=== PATIENT | male | born 1995 | race Caucasian/White ===

== ENCOUNTER 2023-06-20 16:50 | Inpatient (IN) ==
[2023-06-20] MEDS ORDERED: SODIUM CHLORIDE 0.9% 1,000 ML IV STA (16:58)
--- NOTE | 2023-06-20 16:58 | ED Triage Note ---
Date of Service June 20, 2023 History of Present Illness This patient was briefly evaluated while in triage. An abbreviated physical exam was performed. This patient is a 28-year-old Male who presents to the ED for evaluation of abdominal pain for past week. Has had some diarrhea with it, no blood in stool. No vomiting. Had outpatient CT this afternoon that shows acute appendicitis. Last ate 4pm today. No previous surgeries. No allergies. Patient instructed not to eat or drink anything else at this time. Physical Exam CONSTITUTIONAL: No acute distress. Well appearing. RESPIRATORY: Clear to auscultation bilaterally. Equal expansion bilaterally. CARDIOVASCULAR: Regular rate and rhythm with no murmurs, rubs or gallops. GASTROINTESTINAL: TTP in RLQ, no acute abdomen. Active bowel sounds. NEUROLOGIC: Alert and oriented X 4 with normal affect. Initial orders for labs and / or imaging were placed and patient was placed in the waiting area until a bed is available. Please see further documentation for the full ED course.
[2023-06-20] MEDS ORDERED: PIPERACILLIN/TAZOBACTAM 4.5 GM/120 ML BAG IV ONE (18:36)
--- NOTE | 2023-06-20 18:43 | Emergency Department Note ---
Impression & Plan Appendicitis ED Provider Note Provider: Anshu Moore MD DATE OF SERVICE: 06/20/2023 CHIEF COMPLAINT: Abnormal CT, abdominal pain HISTORY OF PRESENT ILLNESS: Patient is a 28-year-old gentleman healthy presenting here today referred due to an abnormal outpatient abdominal CT. States just over a week ago he started to have a little bit of mid abdominal discomfort. The last couple of days things have worsened and more pain now down in the right lower quadrant. Seen at [facility] and had outpatient blood work as well as a CT scan scheduled today. Called this afternoon just after the CT scan informed of findings sooner for appendicitis referred back to the ER. Patient states that he has not had any significant nausea and did eat around 4:[address] imaging before coming back today. Has not used anything for pain and does not feel that he needs anything at this time. Denies any pain or back pain. No sciatica or leg pain reported. Denies trauma. Maybe a trace amount of diarrhea but denies significant. No history of abdominal surgeries reported. No fevers reported. PAST MEDICAL HISTORY: As noted above MEDICATIONS: No regular prescriptions reported SOCIAL HISTORY: Non-smoker PHYSICAL EXAM: GENERAL: alert and oriented in no acute distress on stretcher Head: normocephalic and atraumatic EYES: No injection, discharge or icterus. NECK: Trachea midline. ENT: Mucous membranes pink and moist. LUNGS: Airway patent. No retractions or tachypnea HEART: Regular rate and rhythm. No chest wall tenderness ABDOMEN: Soft without peritonitis or upper abdominal pain but pain localized in the right lower quadrant. SKIN: Acyanotic, warm, dry NEUROLOGICAL: No focal deficits. No aphasia. No facial droop or slurred speech. Ambulatory. Patient's laboratory studies and imaging reviewed. Differential includes Appendicitis, testicular torsion, infections, diverti culitis, UTI, obstruction, mesenteric ischemia, aortic pathology, inflammatory bowel disease, renal colic, PUD, pancreatitis, biliary pathology, hernia, volvulus, constipation, as well as other pathologies. IMPRESSION/MEDICAL DECISION MAKING: Patient denies symptoms or significant sciatic symptoms. Imaging concerning for likely appendicitis. Not having significant symptoms concerning otherwise for IBD/Crohn's. Blood work ordered but report of normal white blood cell count on outpatient blood work. Blood work is reassuring without leukocytosis or anemia. No skin chemistry abnormalities evidence of hepatitis or pancreatitis. Urinalysis negative. Negative COVID testing. Did not seem consistent with pancreatitis hepatitis, or perforation. Given some IV fluid and Zosyn for antibiotic coverage given the CT findings. Not a significant discomfort at this point will avoid narcotics if able. Not having nausea. Imaging report reviewed without evidence of perforation or abscess notable. Reached out to the general surgery team for evaluation. They will admit the patient for further care and likely further surgical care. DIAGNOSIS: Appendicitis DISPOSITION: Evaluated by the surgical team and admitted for further care Past Med/Surg History Social History Smoking Status: Never smoker Hx Alcohol Use: No Hx Substance Use: No Preferred Language: Cambodian Communication Ability: Effective Wearing Apparel Folder Required: No Beliefs That Will Affect Care: None Current Living Situation Comment: 2 roommates Other Information That Helps Us Care for You: No Feels Safe at Home: Yes Safety Concerns: Feels Safe At This Time Assistive Devices: Glasses Allergies Allergies Allergy/AdvReac Type Severity Reaction Status Date / Time No Known Allergies Allergy Unverified 06/20/23 19:39 Home Meds Home Medications Medication Instructions Recorded Confirmed ibuprofen 400 mg tablet 400 mg PO Q6H PRN Pain 06/20/23 06/20/23 Results & Data (ED) Vital Signs Vital Signs - 24 hr 06/20/23 16:54 06/20/23 18:34 06/20/23 19:28 Temperature 36.8 C Temperature Source Temporal Artery Scan Pulse Rate 90 Pulse Rate [Right Finger] 72 71 Respiratory Rate 18 20 18 Respiratory Effort / Characteristics Non-Labored Non-Labored Respiratory Depth Normal Normal Blood Pressure 126/81 Blood Pressure [Right Arm] 148/82 H 135/73 Blood Pressure Mean 96 Blood Pressure Mean [Right Arm] 104 93 Pulse Oximetry 99 97 99 Oxygen Delivery Method Room Air Room Air Sepsis Recent Fever Within 48 Hours No Sepsis New/Unexplained Change in Mental Status No Sepsis Action Taken by Nursing No Action Required Laboratory Data 06/20/23 18:38 06/20/23 18:38 Lab Results 06/20/23 06/20/23 06/20/23 Range/Units 18:38 18:38 19:31 WBC 10.27 (4.8-10.8) K/ul RBC 4.70 (4.70-6.10) M/uL Hgb 14.0 (14.0-18.0) g/dl Hct 41.1 L (42.0-52.0) % MCV 87.4 (80.0-100.0) fL MCH 29.8 (25.0-34.0) pg MCHC 34.1 (32.0-36.0) g/dL RDW Std Deviation 39.1 (36.4-46.3) fL RDW Coeff of Mary 12.2 (11.5-14.5) % Plt Count 178 (130-400) K/uL MPV 10.3 (9.4-12.4) fL Immature Gran % (Auto) 0.3 % Neut % (Auto) 70.8 % Lymph % (Auto) 16.6 % [place] % (Auto) 11.1 % Eos % (Auto) 0.9 % Baso % (Auto) 0.3 % Neut # (Auto) 7.28 H (1.40-6.50) K/uL Lymph # (Auto) 1.70 (1.2-3.4) K/uL [place] # (Auto) 1.14 H (0.11-0.59) K/uL Eos # (Auto) 0.09 (0-0.50) K/uL Baso # (Auto) 0.03 (0-0.2) K/uL Immature Gran # (Auto) 0.03 (0.01-0.20) K/uL Sodium 139 (136-145) mmol/L Potassium 4.0 (3.5-5.1) mmol/L Chloride 102 (98-107) mmol/L Carbon Dioxide 31 (21-32) mmol/L Anion Gap 6 (3-11) BUN 9 (6-23) mg/dl Creatinine 0.85 (0.6-1.4) mg/dl Est Cr Clr Drug Dosing 158.8 ml/min Est GFR ( Amer) 137.4 ml/min Est GFR (Non-Af Amer) 118.6 ml/min BUN/Creatinine Ratio 10.6 (10-20) Glucose 84 (70-99(Fasting)) mg/dl Calcium 9.2 (8.6-10.3) mg/dl Total Bilirubin 1.0 (0.2-1.0) mg/dl AST 13 (13-39) U/L ALT 9 (7-52) U/L Alkaline Phosphatase 72 (34-104) U/L Total Protein 7.4 (6.0-8.3) gm/dl Albumin 4.5 (3.4-5.0) gm/dl Globulin 2.9 (2.5-4.0) gm/dl Albumin/Globulin Ratio 1.6 (0.9-2) Lipase 33 (11-82) U/L SARS-CoV-2, RNA, NAAT NEGATIVE (NEGATIVE) Administered Medications Lactated Ringer's (Lr) 1,000 mls @ 125 mls/hr IV .Q8H SAVANNAH Stop: 07/20/23 19:44 Last Admin: 06/20/23 21:50 Dose: 125 mls/hr Documented By: LY Discontinued Medications Sodium Chloride (Nss 1000ml) 1,000 mls @ 999 mls/hr IV .Q1H1M STA Stop: 06/20/23 17:58 Last Infusion: 06/20/23 19:49 Dose: 0 mls/hr Documented By: Admin: 06/20/23 18:39 Dose: 999 mls/hr Documented By: JANET Piperacillin Sod/Tazobactam Sod (Zosyn) 4.5 gm in 120 mls @ 240 mls/hr IV NOW ONE Stop: 06/20/23 19:05 Last Infusion: 06/20/23 20:16 Dose: 0 mls/hr Documented By: Admin: 06/20/23 19:24 Dose: 240 mls/hr Documented By: JOHN Discharge Plan Visit Data Chief Complaint: Abnormal Labs/Diagnostic Testing Stated Complaint: ABNORMAL LABS, REF BY DOC POSSIBLE APPENDIX ED Provider: Anshu Moore Discharge Problem: Appendicitis Patient Disposition: Admitted As Inpatient Discharge Instructions Interventions: ED Discharge Assessment Last Done: 06/20/23 21:39
[2023-06-20 19:10] LABS: Basophils # (auto) 0.03 K/uL (0-0.2); Basophils % (auto) 0.3 %; Eosinophils # (auto) 0.09 K/uL (0-0.50); Eosinophils % (auto) 0.9 %; Hematocrit (blood only) 41.1 % (42.0-52.0); Immature Granulocytes # (auto) 0.03 K/uL (0.01-0.20); Immature Granulocytes % (auto) 0.3 %; Lymphocytes % (auto) 16.6 %; Mean Corpuscular Hemoglobin 29.8 pg (25.0-34.0); Mean Corpuscular Hgb Conc 34.1 g/dL (32.0-36.0); Mean Corpuscular Volume 87.4 fL (80.0-100.0); Mean Platelet Volume 10.3 fL (9.4-12.4); Monocytes # (auto) 1.14 K/uL (0.11-0.59); Monocytes % (auto) 11.1 %; Neutrophils # (auto) 7.28 K/uL (1.40-6.50); Neutrophils % (auto) 70.8 %; Platelet Count 178 K/uL (130-400); RDW Coefficient of Variation 12.2 % (11.5-14.5); RDW Standard Deviation 39.1 fL (36.4-46.3); White Blood Count 10.27 K/ul (4.8-10.8)
[2023-06-20 19:22] LABS: Albumin Globulin Ratio 1.6 (0.9-2); Albumin Level 4.5 gm/dl (3.4-5.0); BUN Creatinine Ratio 10.6 (10-20); Calcium 9.2 mg/dl (8.6-10.3); Creatinine Clr Calc Pharmacy 158.8 ml/min; Est GFR (African American) 137.4 ml/min; Est GFR (Non-African American) 118.6 ml/min; Globulin 2.9 gm/dl (2.5-4.0); Total Protein 7.4 gm/dl (6.0-8.3)
[2023-06-20] MEDS ORDERED: MoRPHine SULFATE 4 MG/ML 1 ML CARP\\VIAL IV PRN (19:43)
[2023-06-20] MEDS ORDERED: ACETAMINOPHEN 1,000 MG/100 ML VIAL IV PRN (19:43)
[2023-06-20] MEDS ORDERED: ONDANSETRON INJ 2 MG/ML 2 ML VIAL IV PRN (19:43)
--- NOTE | 2023-06-20 19:43 | History & Physical Report ---
This case was discussed with the surgical PA. I agree with the plan. Date of Service June 20, 2023 Assessment & Plan (1) Appendicitis: Plan: Due to the patient's clinical presentation and findings on imaging he will be admitted to the hospital proceeding as follows: Analgesics we provided Antiemetics will be provided N.p.o. status will be implemented The patient be hydrated with intravenous fluids We will follow serial lab The treating emergency room physician has ordered antibiotics in form of Zosyn and we will continue this medicine We have tentatively plan to perform an appendectomy with Dr. Cleveland on 06/21/2023. At the present time the patient is noted to be normotensive without tachycardia or fever. He also does not exhibit leukocytosis and does not have peritoneal signs suggestive of an acute abdomen. As the patient has recently had a meal as described in history of present illness it would be prudent to delay his surgery due to this fact. I have discussed with anesthesia and they would prefer to wait a minimum of 8 hours since the patient has had solid food. 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 due to an abnormal CT scan which will be described below. I evaluated the patient at approximately 7:15 PM on 06/20/2023 patient reports that he had approximate 1 week of right lower quadrant pain. He said that the pain would occur in an on-and-off fashion approximately 5 minutes. The patient notes that he was hiking and was eating some blackberries and he initially considered that he may have had some food poisoning. He notes that throughout the ensuing week his pain got more frequent and is now relatively constant. He does note that the pain is somewhat better when he lies down. He does not note any provocative factors. He has had some minor nausea without emesis. He denies any loss of appetite. He denies any fevers, shakes, or chills. He denies any prior abdominal surgeries. Because of the persistence of his pain he reported to [facility] who had the patient undergo a CT scan. The patient did undergo an outpatient CT scan which was ordered by [facility]. On this study the patient was noted to have some extensive thickening of the cecum and terminal ileum and an enlarged appendix dilated up to approximate 18 mm with a noted appendicolith. The interpreting radiologist felt that this likely represented an acute appendicitis with Crohn's disease considered a less likely diagnosis. There is no evidence of perforation or absc ess. Since arrival to the emergency the patient did have labs where he was noted to have a CBC with a white blood cell count, hemoglobin, and platelet count that were all normal. His hematocrit was slightly low at 41.1. Chemistry profile showed sodium, potassium, BUN, and creatinine were all normal. There is no elevation of patient's LFTs or lipase. Of note, the patient's most recent oral intake was at approximately 4:00 PM on 06/20/2023 where the patient ate a meal at [facility]. At the time of my interview he is resting comfortably in bed and he was in no distress. Concerning past medical history he denies any prior medical problems Concerning past surgical history he has had his wisdom teeth extracted Concerning allergies he denies any allergies to medicines Concerning social history he does not smoke or vape Concerning family history he denies any family history of premature coronary artery disease or myocardial infarction Allergies Allergy/AdvReac Type Severity Reaction Status Date / Time No Known Allergies Allergy Unverified 06/20/23 19:39 Home Medications Medication Instructions Recorded Confirmed Type ibuprofen 400 mg tablet 400 mg PO Q6H PRN Pain 06/20/23 06/20/23 History Past Med/Surg History Social History Smoking Status: Never smoker Preferred Language: Senegalese Feels Safe at Home: Yes Review of Systems Constitutional: no fever and no chills Eyes: + corrective lenses Ear, Nose, Mouth, Throat: no hearing loss Respiratory: no cough and no dyspnea Cardiovascular: no chest pain Gastrointestinal: as per Subjective / HPI Genitourinary: no dysuria Musculoskeletal: no back pain Integumentary: no rash Neurologic: no localized weakness Physical Exam Constitutional: WD/WN, vitals as above Eyes: no conjunctival abnormality ENMT: Ears: no hearing impairment and no external ear abnormality Mouth: no oropharynx abnormality Neck: trachea midline Respiratory: normal respiratory effort, lungs clear to auscultation Cardiovascular: Rate/Rhythm: regular rate and regular rhythm Vessels: dorsalis pedis pulses present and radial pulses present Gastrointestinal (Abdomen): Abdomen is soft, nondistended, and nonrigid. Bowel sounds are present. The patient had pain noted with palpation of the right lower quadrant McBurney's point. There is no rebound tenderness or guarding Musculoskeletal: No calf tender Skin: no rashes Neurologic: moves all extremities Psychiatric: A+Ox3, euthymic affect Results & Data Results & Data Vital Signs (Past 12 Hours) Vital Signs Temp Pulse Pulse Resp BP BP Pulse Ox 06/20/23 19:28 71 18 135/73 99 06/20/23 18:34 72 20 148/82 H 97 06/20/23 16:54 36.8 C 90 18 126/81 99 O2 Del Method 06/20/23 19:28 06/20/23 18:34 Room Air 06/20/23 16:54 Room Air PG Care Time/CCT Total # of Minutes Spent Total Time Spent with Patient: Total time spent is greater than 50% in coordination of care (as documented) at patient's floor/unit and/or counseling patient: Coding Level of Care Code 75602 INT INP/OBS CARE 3/75MIN Diagnoses Appendicitis K37
[2023-06-20] MEDS: LACTATED RINGER'S 1,000 ML IV SCH (21:50)
[2023-06-20 22:15] LABS: Appearance Urine Clear (Clear); Bilirubin Urine Negative (Negative); Blood Urine Negative (Negative); Color Urine Yellow; Glucose Urine UA Negative (Negative); Ketones Urine Negative (Negative); Leukocyte Esterase Urine Negative (Negative); Nitrite Urine Negative (Negative); Protein Urine Negative (Negative); Specific Gravity Urine 1.035 (1.000-1.030); Urobilinogen Urine Negative (Negative); pH Urine 8.5 (4.5-7.5)
[2023-06-20] MEDS: PIPERACILLIN/TAZOBACTAM 4.5 GM in DEXTROSE 5% 100 ML IV SCH (23:52)
[2023-06-21] MEDS: LACTATED RINGER'S 1,000 ML IV SCH ×3 (05:34→20:17)
[2023-06-21 06:35] LABS: Basophils # (auto) 0.03 K/uL (0-0.2); Basophils % (auto) 0.4 %; Eosinophils # (auto) 0.13 K/uL (0-0.50); Eosinophils % (auto) 1.8 %; Hematocrit (blood only) 38.3 % (42.0-52.0); Hemoglobin 13.2 g/dl (14.0-18.0); Immature Granulocytes # (auto) 0.03 K/uL (0.01-0.20); Immature Granulocytes % (auto) 0.4 %; Lymphocytes # (auto) 1.68 K/uL (1.2-3.4); Lymphocytes % (auto) 23.5 %; Mean Corpuscular Hemoglobin 30.2 pg (25.0-34.0); Mean Corpuscular Hgb Conc 34.5 g/dL (32.0-36.0); Mean Corpuscular Volume 87.6 fL (80.0-100.0); Mean Platelet Volume 9.9 fL (9.4-12.4); Monocytes # (auto) 0.83 K/uL (0.11-0.59); Monocytes % (auto) 11.6 %; Neutrophils # (auto) 4.45 K/uL (1.40-6.50); Neutrophils % (auto) 62.3 %; Platelet Count 150 K/uL (130-400); RDW Standard Deviation 39.1 fL (36.4-46.3); Red Blood Count 4.37 M/uL (4.70-6.10); White Blood Count 7.15 K/ul (4.8-10.8)
[2023-06-21 06:41] LABS: BUN Creatinine Ratio 8.4 (10-20); Creatinine Clr Calc Pharmacy 162.7 ml/min; Est GFR (African American) 138.8 ml/min; Est GFR (Non-African American) 119.7 ml/min; Potassium 4.4 mmol/L (3.5-5.1)
[2023-06-21] MEDS: PIPERACILLIN/TAZOBACTAM 4.5 GM in DEXTROSE 5% 100 ML IV SCH ×3 (08:32→23:50)
--- NOTE | 2023-06-21 13:49 | Surgery Progress Note ---
Date of Service June 21, 2023 Assessment & Plan (1) Appendicitis: Plan: The patient has a significant amount of cecal thickening. He does not have any history of GI upset or concerns. He has no trouble with eating foods and has no history of IBS like symptoms. I feel as though Crohn's disease is very unlikely in this case. He has a very large appendix with an appendicolith and this is most likely the cause of his current symptoms. While this has not presented as a classic acute appendicitis as he has been having symptoms for over a week the patient I believe would benefit from having his appendix removed considering these current findings. We will continue with IV antibiotics and fluid hydration at this time to help relieve some of the cecal inflammation. Plan will be for laparoscopic appendectomy tomorrow a.m. The details of this procedure were discussed with the patient including the risks and benefits. He expressed understanding of this explanation and all of his questions were answered. Consent was obtained. Continue IV fluids, IV antibiotics. Ambulate, SCDs to bilateral lower extremities. The patient may have a regular diet and be made n.p.o. after midnight tonight in preparation for surgery tomorrow a.m. Admission and Anticipated Discharge Date Admission Date: June 20, 2023 Subjective The patient was seen and examined at bedside this AM. He says he feels unchanged compared to admission. He denies significant abdominal pain but continues with right lower quadrant discomfort. He appears comfortable, denies nausea or vomiting, continues with an appetite and normal bowel movements. Physical Exam Constitutional: healthy appearing and comfortable; no acute distress, not ill appearing and not diaphoretic Respiratory: normal respiratory effort; no respiratory distress, no labored b reathing and does not use accessory muscles Gastrointestinal (Abdomen): Mild right lower quadrant tenderness to palpation. Minimal distention. Abdomen is soft without peritonitis. Neurologic: moves all extremities; no focal motor deficits, not confused and not obtunded Results & Data Vital Signs (Past 12 Hours) Vital Signs Temp Pulse Resp BP Pulse Ox O2 Del Method 06/21/23 07:51 36.6 C 50 L 18 115/69 100 Room Air Laboratory Results WBC: 7.[address] obtained at admission last night reveals a very enlarged appendix with an appendicolith, acute appendicitis. Subsequent inflammation of cecum and terminal ileum. PG Care Time/CCT Total # of Minutes Spent Total Time Spent with Patient: Total time spent is greater than 50% in coordination of care (as documented) at patient's floor/unit and/or counseling patient: Coding Level of Care Code 61843 SUB INP/OBS CARE 11/24MIN Diagnoses Appendicitis K37
[2023-06-22] MEDS: LACTATED RINGER'S 1,000 ML IV SCH ×3 (03:39→18:42)
[2023-06-22] MEDS: PIPERACILLIN/TAZOBACTAM 4.5 GM in DEXTROSE 5% 100 ML IV SCH ×2 (07:50→18:33)
[2023-06-22 08:33] LABS: Basophils # (auto) 0.02 K/uL (0-0.2); Basophils % (auto) 0.4 %; Eosinophils # (auto) 0.18 K/uL (0-0.50); Eosinophils % (auto) 3.7 %; Hematocrit (blood only) 39.3 % (42.0-52.0); Hemoglobin 13.4 g/dl (14.0-18.0); Lymphocytes # (auto) 1.47 K/uL (1.2-3.4); Lymphocytes % (auto) 30.1 %; Mean Corpuscular Hemoglobin 29.6 pg (25.0-34.0); Mean Corpuscular Hgb Conc 34.1 g/dL (32.0-36.0); Mean Corpuscular Volume 86.8 fL (80.0-100.0); Mean Platelet Volume 10.3 fL (9.4-12.4); Monocytes # (auto) 0.47 K/uL (0.11-0.59); Monocytes % (auto) 9.6 %; Neutrophils # (auto) 2.75 K/uL (1.40-6.50); Neutrophils % (auto) 56.2 %; Platelet Count 172 K/uL (130-400); RDW Coefficient of Variation 11.9 % (11.5-14.5); RDW Standard Deviation 37.4 fL (36.4-46.3); Red Blood Count 4.53 M/uL (4.70-6.10); White Blood Count 4.89 K/ul (4.8-10.8)
--- NOTE | 2023-06-22 08:37 | Surgery Progress Note ---
Date of Service June 22, 2023 Assessment & Plan (1) Appendicitis: Plan Plan is for OR today for laparoscopic appendectomy. Consent was obtained yesterday. NPO, IVF No chemical DVT ppx Admission and Anticipated Discharge Date Admission Date: June 20, 2023 Subjective Patient seen this am. Physical Exam Constitutional: healthy appearing and comfortable; not ill appearing and not in distress Respiratory: normal respiratory effort; no respiratory distress, no labored breathing and does not use accessory muscles Gastrointestinal (Abdomen): Percussion/Palpation: + abdomen tender (mildly lower quadrants) and abdomen soft No peritonitis, non-distended Neurologic: moves all extremities and awake; no focal motor deficits and not confused Results & Data Vital Signs (Past 12 Hours) Vital Signs Temp Pulse Resp BP Pulse Ox O2 Del Method 06/22/23 08:05 36.8 C 57 L 18 119/68 99 Room Air PG Care Time/CCT Total # of Minutes Spent Total Time Spent with Patient: Total time spent is greater than 50% in coordination of care (as documented) at patient's floor/unit and/or counseling patient: Coding Level of Care Code 22463 SUB INP/OBS CARE 1/25MIN Diagnoses Appendicitis K37
[2023-06-22 08:58] LABS: BUN Creatinine Ratio 11.4 (10-20); Calcium 9.3 mg/dl (8.6-10.3); Creatinine Clr Calc Pharmacy 170.9 ml/min; Est GFR (African American) 141.6 ml/min; Est GFR (Non-African American) 122.2 ml/min
[2023-06-22 09:10] LABS: Potassium 4.3 mmol/L (3.5-5.1)
--- NOTE | 2023-06-22 13:31 | Anesthesiology Consultation ---
Date of Service June 22, 2023 Assessment & Plan (1) Encounter for pre-operative examination: Chart Review Chart Review: Acceptable Risk for Surgery and Patient NOT seen in Pre Admission Testing Consults Requested none History Surgery Operation Date: 06/22/23 12:50 Proposed Procedures p Laparoscopic Appendectomy - Marii Miles DO Height/Weight Height: 6 ft 4 in Weight: 92.1 kg Allergies Allergy/AdvReac Type Severity Reaction Status Date / Time No Known Allergies Allergy Unverified 06/20/23 19:39 Medications Home Medications Medication Instructions Recorded Confirmed Last Taken ibuprofen 400 mg tablet 400 mg PO Q6H PRN Pain 06/20/23 06/20/23 Unknown Active Medications Generic Name Dose Route Start Last Admin Trade Name Freq PRN Reason Stop Dose Admin Lactated Ringer's 1,000 mls @ 125 mls/hr 06/20/23 19:45 06/22/23 11:43 Lr IV 07/20/23 19:44 125 mls/hr .Q8H SAVANNAH Administration Piperacillin Sod/Tazobactam 120 mls @ 30 mls/hr 06/21/23 00:00 06/22/23 11:45 Sod 4.5 gm/ Dextrose IV 07/01/23 00:00 Infused Q8H SAVANNAH Infusion Protocol Past Medical History Medical History (Updated 06/22/23 @ 13:31 by Zia Lewis MD) Appendicitis Encounter for pre-operative examination Social History Smoking Status: Never smoker Hx Alcohol Use: No Hx Substance Use: No Physical Exam Vital Signs Last Vital Signs Temp 36.8 C 06/22/23 08:05 Pulse 57 L 06/22/23 08:05 Resp 18 06/22/23 08:05 BP 119/68 06/22/23 08:05 Pulse Ox 99 06/22/23 08:05 O2 Del Method Room Air 06/22/23 08:05 Testing Laboratory Results 06/22/23 07:39 06/22/23 07:39 Urine Color Yellow 06/20/23 22:05 Urine Appearance Clear (Clear) 06/20/23 22:05 Urine pH 8.5 (4.5-7.5) H 06/20/23 22:05 Ur Specific [place] 1.035 (1.000-1.030) H 06/20/23 22:05 Urine Protein Negative (Negative) 06/20/23 22:05 Urine Glucose (UA) Negative (Negative) 06/20/23 22:05 Urine Ketones Negative (Negative) 06/20/23 22:05 Urine Nitrite Negative (Negative) 06/20/23 22:05 Ur Leukocyte Esterase Negative (Negative) 06/20/23 22:05
[2023-06-22] MEDS ORDERED: MIDAZOLAM HCL 1 MG/ML 2ML VIAL ONE (13:36)
[2023-06-22] MEDS ORDERED: fentaNYL citrate PF 100 MCG/2 ML VIAL ONE ×2 (13:37→16:57)
[2023-06-22] MEDS ORDERED: ONDANSETRON INJ 2 MG/ML 2 ML VIAL IV PRN (14:03)
[2023-06-22] MEDS ORDERED: ePHEDrine sulfate 50 MG/ML AMP IV PRN (14:03)
[2023-06-22] MEDS ORDERED: HYDROmorphone INJ 2 MG/ML SYR/VIAL IV PRN (14:03)
[2023-06-22] MEDS ORDERED: PROMETHAZINE HCL 6.25 MG in SODIUM CHLORIDE 0.9% 50 ML IV PRN (14:03)
[2023-06-22] MEDS ORDERED: ATROPINE SULFATE 0.1 MG/ML 10ML SYR IV PRN (14:03)
[2023-06-22] MEDS ORDERED: BUPIVACAINE/EPINEPHRINE 0.5% MPF 1:200,000 30 ML VIAL ONE (14:55)
[2023-06-22] MEDS ORDERED: DEXAMETHASONE SOD INJ 4 MG/ML VIAL ONE (15:01)
[2023-06-22] MEDS ORDERED: LIDOCAINE 2% 2 ML VIAL/AMP(20MG/ML) INFIL ONE (15:01)
[2023-06-22] MEDS ORDERED: PROPOFOL IV EMULSION 10 MG/ML 20 ML VIAL IV ONE (15:01)
[2023-06-22] MEDS ORDERED: ROCURONIUM BROMIDE 10 MG/ML 5 ML VIAL IV ONE (15:01)
[2023-06-22] MEDS ORDERED: ONDANSETRON INJ 2 MG/ML 2 ML VIAL ONE (15:01)
[2023-06-22] MEDS ORDERED: GLYCOPYRROLATE 0.2 MG/ML VIAL ONE (15:26)
[2023-06-22] MEDS ORDERED: KETAMINE 50 MG/5 ML SYRINGE ONE (15:29)
[2023-06-22] MEDS ORDERED: FLOSEAL HEMOSTATIC MATRIX 10ML TOP ONE (16:31)
[2023-06-22] MEDS ORDERED: SUGAMMADEX SODIUM 200 MG/2 ML VIAL IV ONE (16:33)
--- NOTE | 2023-06-22 17:10 | Operative Report ---
PG Post Operative Report Pre & Post Diagnosis Operation Date: 06/22/23 12:50 Pre-Op Diagnosis: (1) Appendicitis Post-Op Diagnosis: (1) Appendicitis I identified the patient and participated in the time-out.: Yes Procedure Operation Date: 06/22/23 12:50 Actual Procedures p Laparoscopic Appendectomy(Not Applicable) - Marii Miles DO Surgeon Marii Miles DO Wrap Yarn Sorter Joelle Prakash'yariel Estimated Blood Loss 7 Findings Consistent with Post-Op Diagnosis Specimens Appendix Drains None Anesthesia Type General Complications None Indications Acute appendicitis Description of Procedure Patient was brought back to the operating room placed on the operating room table in supine position. The patient was connected to cardiac and oxygen monitoring. SCDs were applied to bilateral lower extremities. General anesthesia was administered and a secure airway was obtained. A Cavanaugh catheter was inserted. The abdomen was prepped and draped in typical sterile fashion and a timeout was conducted. Local anesthetic was injected into the skin and subcutaneous tissue at the infraumbilical area and a small stab incision was made with an 11 blade. A towel clamp was used to elevate the fascia and a Veress needle was used to access the intra-abdominal space. This location was confirmed with a saline drop test. CO2 insufflation was initiated and pneumoperitoneum was achieved to a pressure of 15 mmHg. A 5 mm trocar was inserted under direct visualization using a 5 mm Visiport with the laparoscope. Local anesthetic was injected into the skin and subcutaneous tissue just above the pubic bone and a stab incision was made with an 11 blade. A suprapubic 5 mm trocar was inserted under direct visualization. A 12 mm trocar was inserted at the left lower quadrant in the same fashion using direct visualization. The omentum was noted to be densely adhered to the right paracolic gutter. A loop of small bowel coursed up and admitted to the and was densely adhered to this area as well. It was come to realize that this was the terminal ileum. Extensive lysis of adhesions had to be undertaken in order to remove the omentum from around the area of interest. The cecum was difficult to identify and was very encased and trapped beneath all of this omental fat and peritoneum. The tissues in this area were very hard and difficult to manipulate.. Careful Christal blunt dissection was used with the suction device to tease apart the structures in this location. Redundant thickened and inflamed peritoneum was dissected away and the portion of the terminal ileum connecting to the cecum was eventually identified. The cecum was still not readily seen as it was covered in layers of redundant thickened peritoneum. The dissection was then taken to the most lateral aspect of the abdomen where a plane was identified between the colon and peritoneum. This was dissected to the point where the ascending colon came into view. The cecum was retracted in addition to the appendix which was finally identified very retrocecal. The tip of the appendix was very dilated and firm. This was a very nonmobile and difficult to manipulate. Tedious, Christal and gentle dissection continued in a blunt fashion using the suction slabber device. The body of the appendix was eventually slowly dissected from the retroperitoneum. A LigaSure device was used to aid in this dissection, being careful not to injure the terminal ileum that was closely associated with this area as well. Finally the base of the appendix was identified and the tip of the cecum a 45 mm purple loaded Endo ANGELES was used to transect and ligate this structure. The appendix was placed in an Endo Catch bag and placed in a labeled container sent to pathology for further analysis. The area was thoroughly inspected for hemostasis. Excess second and inflamed peritoneum mixed with fatty tissue that had been identified earlier on in the case was removed and sent in a labeled container along with the appendix to pathology for further analysis. This could have potentially been an obliterated mesoappendix and the appendiceal artery. Secondary to the dense adhesions and fibrinous tissue in general there was oozing from the peritoneal tissue surrounding. These were very gently cauterized taking care not to cause thermal injury to the bowel. Once hemostasis was achieved Floseal was used at the right paracolic gutter lower these fibrinous and oozy tissues. The pelvis was suctioned and irrigated. The omentum was pulled down to cover this area of dissection and appendectomy. Pneumoperitoneum was evacuated all the instruments and trocars were removed. The left lower quadrant incision was closed at the level of the fascia using 0 Vicryl suture. 3-0 Vicryl suture was used to coapt the deep dermis. The 3 incisions were closed at the level of skin with 4-0 Vicryl suture. The abdomen was wiped clean with a saline soaked lap pad and dried. The incisions were each dressed with Dermabond. The Cavanaugh catheter was removed. The patient was awakened from anesthesia and a secure airway was removed. He tolerated the procedure well and was transferred to recovery in stable condition. I attest to the content of the Intraoperative Record and any orders documented therein. Any exceptions are noted below.
[2023-06-22] MEDS: fentaNYL citrate PF 100 MCG/2 ML VIAL IV PRN ×4 (17:35→17:50)
--- NOTE | 2023-06-22 18:10 | Anesthesiology Progress Note ---
Date of Service June 22, 2023 Anesthesia Post Procedure Vital Signs Vital Signs: Temp Pulse Pulse Resp BP Pulse Ox O2 Del Method 06/22/23 17:40 89 16 157/84 H 100 Oxymask 06/22/23 17:50 70 18 148/81 H 100 Oxymask 06/22/23 17:30 91 H 18 149/79 H 100 Oxymask 06/22/23 17:20 88 18 146/81 H 100 Oxymask 06/22/23 17:11 36.3 C L 88 16 164/83 H 97 Oxymask 06/22/23 13:50 36.9 C 20 127/71 99 Room Air 06/22/23 08:05 36.8 C 57 L 18 119/68 99 Room Air 06/21/23 20:15 36.7 C 62 16 124/75 99 Room Air O2 Flow Rate 06/22/23 17:40 2 06/22/23 17:50 2 06/22/23 17:30 3 06/22/23 17:20 5 06/22/23 17:11 5 06/22/23 13:50 06/22/23 08:05 06/21/23 20:15 Pain Intensity Abdomen: Pain Intensity: 3 Transfer of Care Handoff Completed per policy Notes Mental Status: alert / awake / arousable Patient Amnestic to Procedure: Yes Nausea / Vomiting: adequately controlled Pain: adequately controlled Airway Patency, RR, SpO2: stable & adequate BP & HR: stable & adequate Hydration State: stable & adequate Anesthetic Complications: no major complications apparent
[2023-06-22] MEDS ORDERED: MoRPHine SULFATE 4 MG/ML 1 ML CARP\\VIAL IV PRN (18:30)
[2023-06-22] MEDS ORDERED: MoRPHine SULFATE 2 MG/ML CARP IV PRN (18:30)
[2023-06-22] MEDS: ACETAMINOPHEN 1,000 MG/100 ML VIAL IV SCH (19:08)
[2023-06-22] MEDS ORDERED: Nursing to Pharmacy Communication SCH (20:00)
[2023-06-23] MEDS: LACTATED RINGER'S 1,000 ML IV SCH ×3 (01:36→21:24)
[2023-06-23] MEDS: ACETAMINOPHEN 1,000 MG/100 ML VIAL IV SCH ×3 (01:36→17:35)
[2023-06-23] MEDS: PIPERACILLIN/TAZOBACTAM 4.5 GM in DEXTROSE 5% 100 ML IV SCH ×4 (01:37→23:19)
--- NOTE | 2023-06-23 08:42 | Surgery Progress Note ---
Date of Service June 23, 2023 Assessment & Plan (1) Appendicitis: Plan: Patient is POD 1 s/p laparoscopic appendectomy. HD stable, afebrile. F/U am labs. Continue fluids and NPO (may have ice chips). Ambulate Admission and Anticipated Discharge Date Admission Date: June 20, 2023 Subjective Patient feels improved since surgery. Denies N/V. Has some gas pains at the right ribs and shoulder. Occasional mild abdominal soreness well controlled. Says he has passed some gas. Physical Exam Constitutional: healthy appearing; not ill appearing, not in distress and not diaphoretic Respiratory: normal respiratory effort; no respiratory distress, no labored breathing and does not use accessory muscles Gastrointestinal (Abdomen): abdomen is mildly distended, very soft, no ecchymosis. Incisions are dry and intact. Neurologic: moves all extremities and awake; no focal motor deficits and not confused Results & Data Vital Signs (Past 12 Hours) Vital Signs Temp Pulse Resp BP Pulse Ox O2 Del Method 06/23/23 08:17 36.7 C 63 18 132/73 99 Room Air 06/23/23 01:47 36.7 C 54 L 16 139/75 98 Room Air 06/22/23 21:44 37 C 71 16 133/68 98 Room Air Laboratory Results Labs pending PG Care Time/CCT Total # of Minutes Spent Total Time Spent with Patient: Total time spent is greater than 50% in coordination of care (as documented) at patient's floor/unit and/or counseling patient: Coding Level of Care Code 42716 SUB INP/OBS CARE /25MIN Diagnoses Appendicitis K37
[2023-06-23 08:47] LABS: Basophils # (auto) 0.02 K/uL (0.00-0.20); Basophils % (auto) 0.2 %; Eosinophils # (auto) 0.02 K/uL (0.00-0.50); Eosinophils % (auto) 0.2 %; Hematocrit (blood only) 37.9 % (42.0-52.0); Hemoglobin 13.3 g/dl (14.0-18.0); Immature Granulocytes # (auto) 0.04 K/uL (0.01-0.20); Immature Granulocytes % (auto) 0.4 %; Lymphocytes # (auto) 1.22 K/uL (1.20-3.40); Lymphocytes % (auto) 11.9 %; Mean Corpuscular Hemoglobin 29.7 pg (25.0-34.0); Mean Corpuscular Hgb Conc 35.1 g/dL (32.0-36.0); Mean Corpuscular Volume 84.6 fL (80.0-100.0); Mean Platelet Volume 10.3 fL (9.4-12.4); Monocytes # (auto) 1.27 K/uL (0.11-0.59); Monocytes % (auto) 12.4 %; Neutrophils # (auto) 7.64 K/uL (1.40-6.50); Neutrophils % (auto) 74.9 %; Platelet Count 202 K/uL (130-400); RDW Coefficient of Variation 11.6 % (11.5-14.5); RDW Standard Deviation 35.6 fL (36.4-46.3); Red Blood Count 4.48 M/uL (4.70-6.10); White Blood Count 10.21 K/ul (4.8-10.8)
[2023-06-23 09:08] LABS: BUN Creatinine Ratio 12.3 (10-20); Calcium 8.9 mg/dl (8.6-10.3); Creatinine Clr Calc Pharmacy 166.7 ml/min; Est GFR (African American) 140.2 ml/min; Est GFR (Non-African American) 120.9 ml/min; Potassium 4.2 mmol/L (3.5-5.1)
--- NOTE | 2023-06-23 12:00 | Surgery Progress Note ---
Date of Service June 23, 2023 Assessment & Plan (1) Appendicitis: Plan POD 1 s/p laparoscopic appendectomy. HD stable, afebrile remains without leukocytosis. Is doing well. May start clears today. February Hep-Lock IV when tolerating well. Encourage ambulation. Admission and Anticipated Discharge Date Admission Date: June 20, 2023 Subjective Patient was seen and examined this AM. He feels as though his abdomen is improved. He does admit to soreness at the incision sites. He denies nausea vomiting and is passing flatus. Physical Exam Constitutional: + thin and healthy appearing; not ill appearing, not in distress and not diaphoretic Respiratory: normal respiratory effort; no respiratory distress, no labored breathing and does not use accessory muscles Gastrointestinal (Abdomen): Inspection/Auscultation: abdomen not distended Percussion/Palpation: + abdomen tender (Mild right lower quadrant tenderness ) and abdomen soft; no guarding and abdomen not rigid Incisions are dry and intact. There is no swelling or erythema. Neurologic: awake; no focal motor deficits, not confused and not obtunded Results & Data Vital Signs (Past 12 Hours) Vital Signs Temp Pulse Resp BP Pulse Ox O2 Del Method 06/23/23 08:17 36.7 C 63 18 132/73 99 Room Air 06/23/23 01:47 36.7 C 54 L 16 139/75 98 Room Air Laboratory Results WBC 10.21 H&H 13.3/37.9 PG Care Time/CCT Total # of Minutes Spent Total Time Spent with Patient: Total time spent is greater than 50% in coordination of care (as documented) at patient's floor/unit and/or counseling patient: Coding Level of Care Code 26727 SUB INP/OBS CARE 11/24MIN Diagnoses Appendicitis K37
[2023-06-24] MEDS: ACETAMINOPHEN 1,000 MG/100 ML VIAL IV SCH ×3 (01:33→18:08)
[2023-06-24] MEDS: PIPERACILLIN/TAZOBACTAM 4.5 GM in DEXTROSE 5% 100 ML IV SCH ×2 (07:25→15:15)
--- NOTE | 2023-06-24 07:35 | Surgery Progress Note ---
Date of Service June 24, 2023 Assessment & Plan (1) Appendicitis: Plan: POD 2 s/p a very difficult laparoscopic appendectomy. He remains HD stable and afebrile. He was started on clears yesterday. Overall seems to have tolerated those well. Did complain of some unusual pressure in his abdomen yesterday that is still slightly present today. We will continue with clears at this time. Follow-up a.m. labs. If he does well today, remains afebrile without leukocytosis or worsening abdominal changes his diet may be advanced tomorrow and he may be discharged. We will follow-up surgical pathology. Follow-up with me in the office in 2 weeks. Admission and Anticipated Discharge Date Admission Date: June 20, 2023 Subjective The patient was seen and examined today. He says he had an episode of pressure in his abdomen overnight. This began to resolve when he got up and walked around. He says he also had a good bowel movement thereafter. This a.m. he reports some residual pressure. He states this feels as though having soda in his diet may have contributed. He denies nausea. No fevers or chills overnight. Physical Exam Constitutional: no acute distress, not ill appearing, no altered mental status and not diaphoretic Respiratory: normal respiratory effort; no respiratory distress, no labored breathing and does not use accessory muscles Gastrointestinal (Abdomen): Abdomen appears mildly distended but very soft. Surgical incisions are dry and intact. There is no evidence for infection at the surgical sites. He is moderately tender at the right lower quadrant. No rebound or guarding. Neurologic: awake; no focal motor deficits, not confused and not obtunded Results & Data Vital Signs (Past 12 Hours) Vital Signs Temp Pulse Resp BP Pulse Ox O2 Del Method 06/24/23 07:01 36.9 C 74 20 132/71 98 Room Air 06/23/23 19:57 37.4 C 78 16 124/77 95 Room Air PG Care Time/CCT Total # of Minutes Spent Total Time Spent with Patient: Total time spent is greater than 50% in coordination of care (as documented) at patient's floor/unit and/or counseling patient: Coding Level of Care Code 25521 SUB INP/OBS CARE 11/24MIN Diagnoses Appendicitis K37
[2023-06-24 08:56] LABS: Basophils # (auto) 0.03 K/uL (0.00-0.20); Basophils % (auto) 0.3 %; Eosinophils # (auto) 0.08 K/uL (0.00-0.50); Eosinophils % (auto) 0.8 %; Hematocrit (blood only) 39.1 % (42.0-52.0); Hemoglobin 13.5 g/dl (14.0-18.0); Immature Granulocytes # (auto) 0.05 K/uL (0.01-0.20); Immature Granulocytes % (auto) 0.5 %; Lymphocytes # (auto) 1.36 K/uL (1.20-3.40); Mean Corpuscular Hemoglobin 29.5 pg (25.0-34.0); Mean Corpuscular Hgb Conc 34.5 g/dL (32.0-36.0); Mean Corpuscular Volume 85.6 fL (80.0-100.0); Mean Platelet Volume 10.2 fL (9.4-12.4); Monocytes # (auto) 1.26 K/uL (0.11-0.59); Neutrophils # (auto) 7.71 K/uL (1.40-6.50); Neutrophils % (auto) 73.4 %; Platelet Count 181 K/uL (130-400); RDW Coefficient of Variation 11.9 % (11.5-14.5); RDW Standard Deviation 36.7 fL (36.4-46.3); Red Blood Count 4.57 M/uL (4.70-6.10); White Blood Count 10.49 K/ul (4.8-10.8)
[2023-06-24 09:23] LABS: BUN Creatinine Ratio 7.5 (10-20); Creatinine Clr Calc Pharmacy 168.8 ml/min; Est GFR (African American) 140.9 ml/min; Est GFR (Non-African American) 121.6 ml/min; Potassium 3.7 mmol/L (3.5-5.1)
[2023-06-25] MEDS: PIPERACILLIN/TAZOBACTAM 4.5 GM in DEXTROSE 5% 100 ML IV SCH ×3 (00:01→08:56)
[2023-06-25] MEDS: ACETAMINOPHEN 1,000 MG/100 ML VIAL IV SCH ×3 (02:25→08:56)
--- NOTE | 2023-06-25 10:10 | Surgery Progress Note ---
Date of Service June 25, 2023 Assessment & Plan (1) Appendicitis: Plan: s/p lap appendectomy. Feels well. OK to discharge today. Admission and Anticipated Discharge Date Admission Date: June 20, 2023 Subjective Feels well. Passed flatus. On liquids still. Wants to go home. Physical Exam Gastrointestinal (Abdomen): soft, mild distention, mild tenderness, incisions clean, pos bowel tones Neurologic: awake; no focal motor deficits Results & Data Vital Signs (Past 12 Hours) Vital Signs Temp Pulse Resp BP Pulse Ox O2 Del Method 06/25/23 07:18 36.8 C 67 16 134/76 97 Room Air
--- NOTE | 2023-07-04 22:40 | Discharge Summary ---
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 I evaluated the patient at approximately 7:15 PM on 06/20/2023 patient reports that he had approximate 1 week of right lower quadrant pain. He said that the pain would occur in an on-and-off fashion approximately 5 minutes. The patient notes that he was hiking and was eating some blackberries and he initially considered that he may have had some food poisoning. He notes that throughout the ensuing week his pain got more frequent and is now relatively constant. He does note that the pain is somewhat better when he lies down. He does not note any provocative factors. He has had some minor nausea without emesis. He denies any loss of appetite. He denies any fevers, shakes, or chills. He denies any prior abdominal surgeries. Because of the persistence of his pain he reported to [facility] who had the patient undergo a CT scan. The patient did undergo an outpatient CT scan which was ordered by [facility]. On this study the patient was noted to have some extensive thickening of the cecum and terminal ileum and an enlarged appendix dilated up to approximate 18 mm with a noted appendicolith. The interpreting radiologist felt that this likely represented an acute appendicitis with Crohn's disease considered a less likely diagnosis. There is no evidence of perforation or abscess. Since arrival to the emergency the patient did have labs where he was noted to have a CBC with a white blood cell count, hemoglobin, and platelet count that were all normal. His hematocrit was slightly low at 41.1. Chemistry profile showed sodium, potassium, BUN, and creatinine were all normal. There is no elevation of patient's LFTs or lipase. Of note, the patient's most recent oral intake was at approximately 4:00 PM on 06/20/2023 where the patient ate a meal at [employer]. At the time of my interview he is resting comfortably in bed and he was in no distress. Concerning past medical history he denies any prior medical problems Concerning past surgical history he has had his wisdom teeth extracted Concerning allergies he denies any allergies to medicines Concerning social history he does not smoke or vape Concerning family history he denies any family history of premature coronary artery disease or myocardial infarction Discharge Data Consultations 06/20/23 18:48 Consult General Surgery Routine Procedures Performed Operation Date: 06/22/23 12:50 Actual Procedures p Laparoscopic Appendectomy(Not Applicable) - Marii Miles DO Hospital Course (1) Appendicitis: The patient underwent a laparoscopic appendectomy on 06/22/23. He was slowly advanced in diet and was able to be discharged with his pain controlled.
== END 2023-06-25 11:37 | disposition home or self-care (01) | DRG 343 ==
LOC: ED 16:50 → 3N 19:46
DX: K37 Unspecified appendicitis